=== PATIENT | female | born 1975 | race Caucasian/White ===

== ENCOUNTER 2016-09-19 07:31 | Inpatient (IN) | payer OTHER ==
[2016-09-19] VITALS (15 sets, daily range): BP systolic 94–114; BP diastolic 41–74; PULSE 66–93; TEMP 98–98.9
[~2016-09-19] VITALS: Ht 157.5 cm; Wt 63.6 kg
[~2016-09-19 07:31] MED LIST: IBU800 M1 PO; NORCO 325 MG-51 TAB PO; PERCOCET 325 MG1 TA2 PO
[2016-09-19] MEDS ORDERED: PRENATAL MVI (07:50)
[2016-09-19 08:34] LABS: BASO # 0.1 (0.0-0.2); BASO % 0.4 % (0.0-2.0); EOS # 0.1 (0.0-0.7); EOS % 0.7 % (0-4.0); GRAN % 64.7 % (42.2-75.2); LYMPH # 3.8 (1.2-3.4); LYMPH % 27.5 % (20.0-51.0); MEAN CELL VOLUME 89 fl (80.0-100.0); MEAN CORPUSCULAR HGB CONC 33 g/dl (33.0-37.0); MEAN PLATELET VOLUME 12.6 fl (7.4-10.4); MONO # 0.8 (0.1-0.6); MONO % 5.8 % (1.7-9.3); PLATELET COUNT 137 K/mm3 (130-400); RED BLOOD COUNT 3.68 M/mm3 (4.10-5.30); REDCELL DISTRIBUTION WIDTH-CV 14.3 % (11.5-14.5); WHITE BLOOD COUNT 13.9 K/mm3 (4.8-10.8)
[2016-09-19 08:45] LABS: HEMATOCRIT 32.9 % (37.0-47.0); MEAN CORPUSCULAR HEMOGLOBIN 30 pg (27.0-31.0)
[2016-09-19] MEDS ORDERED: PERCOCET 325 MG1 TA2 PO (11:03)
[2016-09-19] MEDS ORDERED: MOTRIN 800800 MG/TAB PO (11:03)
[2016-09-20 07:44] VITALS: BP 95/54; PULSE 72; TEMP 98.1
[2016-09-20 21:00] VITALS: BP 99/71; PULSE 80; TEMP 98.2
[2016-09-21 08:00] VITALS: BP 95/53; PULSE 64; TEMP 98
== END 2016-09-21 12:00 | disposition home or self-care (01) | DRG 775 ==
LOC: LDRO 07:31 → LDR 08:05 → OB 13:00 → LDRO 09-28 13:37
PROVIDERS: Obstetrics & Gynecology
PROC: 10E0XZZ Delivery of Products of Conception, External Approach (ICD-10-PCS; principal; 2016-09-19)
PROC: 0KQM0ZZ Repair Perineum Muscle, Open Approach (ICD-10-PCS; 2016-09-19)
DX: O70.1 Second degree perineal laceration during delivery (principal); O09.523 Supervision of elderly multigravida, third trimester; Z87.51 Personal history of pre-term labor; Z3A.38 38 weeks gestation of pregnancy; Z37.0 Single live birth
CPT/HCPCS: J2210; J2590; J7120